=== PATIENT | male | born 1950 | race Caucasian/White ===

== ENCOUNTER 2020-11-12 08:50 | Day surgery (SDC) | payer MEDICARE, SELFPAY ==
[2020-10-20 08:19] VITALS: BMI 25.7
[2020-11-08 09:44] LABS: Hematocrit 38.7 % (40-54); Hemoglobin 12.6 g/dL (13.0-16.5); Mean Corp Hgb Conc 32.6 g/dL (32-36); Mean Corpuscular Volume 95.3 fL (80-94); Mean Platelet Vol. 8.9 fl (6.2-12.0); Platelet Count 218 K/mm3 (150-450); RBC Distribution Width CV 13.4 % (11.6-14.6); RBC Distribution Width SD 47.5 fl (35.1-43.9); Red Blood Count 4.06 M/mm3 (4.6-6.2); White Blood Count 5.8 K/mm3 (4.4-11.0)
[2020-11-08 09:51] LABS: Prothrombin Time (Protime)PT. 12.8 SECONDS (11.7-14.9)
[2020-11-08 09:52] LABS: Partial Thromboplast Time 29.6 Seconds (24.1-36.2)
[2020-11-08 10:49] LABS: Anion Gap 6 (5-15); BUN 14 mg/dL (7-18); BUN/Creat Ratio 12.7 RATIO (10-20); Chloride 107 mmol/L (98-107); EST Glomerular Filtration Rate 70 mL/min (>60); Est Glom Filt Rate - Afr Amer 85 mL/min (>60); Glucose 92 mg/dL (74-106); Potassium 4.4 mmol/L (3.5-5.1); Sodium Level 140 mmol/L (136-145)
[2020-11-12] VITALS (10 sets, daily range): BP systolic 106–118; BP diastolic 58–77; PULSE 57–78; RESP 10–18; TEMP 35.8–36.6; O2SAT 96–100; BMI 24.2
--- NOTE | 2020-11-12 09:36 | PCM.HP.BLA ---
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 Jeremias Jones MD) Heart attack HTN (hypertension) Family History (Updated 10/20/20 @ 08:10 by Teresita Lee) Mother CAD (coronary artery disease) Autoimmune disease Social History (Updated 10/20/20 @ 08:10 by Teresita Lee) Smoking Status: Former smoker alcohol intake: never HPI HPI HPI: MARIAN CABALLERO, is a 70 M who presents to the office today for surgical consultation regarding a right inguinal hernia. The patient is kindly referred by Dr. Marquez and a written copy my surgical consult and recommendation will be returned to him. Patient is a pleasant 70-year-old gentleman. 9 months ago after a game of golf he noted a twinge and discomfort in the right groin. Graduate time it evolved into an avid obvious mass bulge. It is reducible. He was waiting for Covid result. He has had his COVID-19 vaccinations. It is becoming larger and more symptomatic. He does enjoy playing golf at least once per week. His past medical history is notable for having had a myocardial infarction 10 years ago. 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 He has been a long-term cigarette smoker. He claims that for period of time he quit for 15 years. His also smokes and yet apparently she is having some peripheral vascular disease. He feels that this would be a good time for them to cease their use. He is motivated to do so. He otherwise enjoys good health. ROS General General: No weight change, appetite, fatigue, colon cancer, breast cancer or weakness HEENT HEENT: No difficulty swallowing, eye injury, eye surgery, swollen glands or hoarseness Endo Endocrine: No thyroid disease, diabetes mellitus, thyroid cancer, Hair loss, heat intolerance or cold intolerance Skin Skin: No rash or changing moles Breast Breast: No left breast lump, right breast lump, nipple discharge, breast pain, abnormal mammogram, abnormal US or breast enlargement Musc Musculoskeletal: No back problems, arthritis, rheumatoid arthritis, gout or joint pain Cardio Cardiovascular: Yes heart attack; No murmur, pacemaker, heart disease, atrial fibrillation, high blood pressure, heart stent, palpitations, shortness of breat with exertion or chest pain Psych Psychiatric: No depression, anxiety or hearing voices Resp Respiratory: No shortness of breath, No sleep apnea, No cough, No COPD, No asthma, No emphysema and No wheezing Gastro Gastrointestinal: No abdominal pain, No nausea or vomiting, No diarrhea, No constipation, No blood in stool, No acid reflux, No hemorrhoids, No ulcers, No gallbladder problem and No black,tarry stools Francesco Hematologic: No blood thinners, No blood disorders, No bleeding, No anemia and No blood clots Neuro Neurologic: No system reviewed and no additional complaints, except as documented, No as per HPI, No abnormal gait, No abnormal hearing, No abnormal movements, No abnormal speech, No behavioral changes, No burning sensations, No confusion, No convulsions, No disequilibrium, No dizziness, No localized weakness, No frequent falls, No headache(s), No lack of coordination, No loss of vision, No memory loss, No numbness, No other visual disturbances, No radicular pain, No restless legs, No sensory deficit, No syncope, No tingling, No tremor(s), No weakness and No other Exam Const General: cooperative, comfortable and no acute distress Nutritional Appearance: average body habitus Orientation: alert and awake [facility] Head: normal to inspection Eyes General: appearance normal, both eyes and all related structures Resp Effort & Inspection: normal respiratory effort Auscultation: clear to auscultation bilaterally Cardio Rate: regular rate Rhythm: regular rhythm Other: Carotids are 3+. No bruits GI Palpation: soft and no hepatosplenomegaly Auscultation: normal bowel sounds Other: Testicles are descended bilaterally, obvious right inguinal hernia noted probably indirect. It is reducible. No similar defect noted on the left Musc Cervical Spine: normal cervical lordosis Neuro General: patient alert and patient awake Extrem General: no calf tenderness bilaterally Psych Thought Content: normal COVID (Procedure Consent) Procedure Criteria Procedure Criteria: Yes Elective The surgeon/proceduralist and patient have discussed in detail the risk of exposure to and/or potential harm posed by the COVID-19 virus with having a surgery/procedure at this time versus the risk of delaying the surgery/procedure. It is not possible to know either the risk of delaying the surgery or procedure or chance of getting an infection with perfect accuracy, but a joint decision was made between the patient and the surgeon/proceduralist to proceed at this time with the scheduled surgery/procedure as indicated on the consent form. Assessment and Plan Assessment and Plan (1) Hernia: (2) Inguinal hernia of right side without obstruction or gangrene: Status: Acute Plan Details Other Medications: New: tamsulosin (Flomax) 0.4 mg PO Q24H 30 caps 0RF Additional Comments: Pleasant 70-year-old gentleman with a progressively symptomatic and enlarging right inguinal hernia, probably indirect. He has occasional nocturia. He has a history of vascular cardiovascular disease with previous myocardial infarction but that was 10 years ago. He is recently had cardiology evaluation. He is asymptomatic. He does smoke cigarettes but to a lesser degree at 10 cigarettes/week. He is motivated to stop. As noted above he is interested in assisting his with seizing as well. I recommend to him a laparoscopic right inguinal hernia repair with mesh. I discussed the technique, benefit, risk of alternatives. The patient is quite physically active. I believe that this procedure would offer him best opportunity for comfort and return to normal activity. We will ask him to hold his cigarettes approximately 4 weeks preoperatively. We will also initiate him on tamsulosin 0.4 mg nightly 3 weeks preoperatively. He has had an opportunity to ask and have questions answered. We will schedule and proceed at his discretion. I very much appreciate the kind opportunity of assisting with surgical care. Copy: Dr. Mary Jones M.D., F.A.C.S I have re-examined the patient. There are no clinical changes since date of exam.
--- NOTE | 2020-11-12 09:37 | EX.PCM.DISCH ---
Discharge Instructions Procedure General Surgery Diet Discharge Diet: Light diet - advance as tolerated (if you have questions about your diet instructions, please talk to you doctor.) Activity Discharge Activity: May Not Drive (for 3-5 days or while taking narcotic pain medicine.) May shower in (days): 1 Lifting Restrictions: 10 pounds Dressing / Incision Call your doctor if your incision/area has: Continuous Slow Oozing, Sudden Increased Bleeding, Increased Pain/ Swelling, Increased Redness and Foul Smelling Discharge Call your doctor if you observe: Fever of 101 or Higher Suture Line Care: Avoid Pulling/Pushing and Avoid Pinching/Bending Additional Dressing/Incision Instructions:: Change or remove dressing in 4 days. Leave steri-strips in place for 1 week. Follow Up Care Please Follow Up With: Jeremias Jones MD When: Call [phone] to make an appointment to be seen in about 10 days. Test Results: Test results from this visit will be discussed in further detail at your follow-up appointment, if applicable. Discharge Plan Admission Attending Provider: Jeremias Jones Primary Care Provider: Mary Marquez Discharge Orders/Prescriptions Prescriptions: No Action lisinopril 2.5 mg tablet 2.5 mg PO DAILY RF: 0 carvedilol 3.125 mg tablet 3.125 mg PO BID RF: 0 pravastatin 80 mg tablet 80 mg PO QHS RF: 0 aspirin 81 mg Tablet 81 mg PO DAILY RF: 0 tamsulosin [Flomax] 0.4 mg capsule 0.4 mg PO 1700 RF: 0
[2020-11-12] MEDS: Lactated Ringers 1,000 ML 100 ML IV ×3 (09:49→14:39)
[2020-11-12] MEDS: Cefazolin 2 GM in 0.9% Normal Saline 100 ML IV (10:10)
[2020-11-12] MEDS: Bupivacaine Mpf 0.5% 30 ML VIAL (10:32)
--- NOTE | 2020-11-12 11:13 | OP.PCM_ITS ---
Problems Associated Problem List Diagnoses (1) Inguinal hernia of right side without obstruction or gangrene: Report of Operation Date of Procedure: 11/12/20 Pre-Operative Diagnosis: Symptomatic right inguinal hernia Post-Operative Diagnosis: Symptomatic direct right inguinal hernia Surgery/Procedure Performed:: Laparoscopic right inguinal herniorrhaphy with Bard 3D max mesh Large right lot number [id number] Reference #[id number] expiry date 06/17/2025 Description of Surgical Findings:: Timeout and informed consent was obtained. 70-year-old gentleman was taken the operating placed on the table underwent general endotracheal intubation anesthesia. Ancef 2 g were given intravenously. The abdomen sterilely prepped draped. 0.5% Marcaine was used as a local anesthetic skin sites were preanesthetized a vertical infraumbilical incision was created holding sutures of 0 Vicryl placed varies needle inserted saline drop test performed the abdomen was insufflated with CO2 to a pressure of 10 mmHg pressure. 10 mm trocar inserted. 10 mm laparoscope inserted. No evidence of enteric injuries. Under direct visualization 5 mm ports were placed in the right left lower quadrant. A ileal inguinal nerve block on the right was performed under laparoscopic control. There was evidence of a direct right inguinal hernia and no defect on the left. The peritoneum on the right superior lateral to the internal ring was incised carried medially. The direct indirect and femoral area completely dissected free bluntly. Hemostasis was completely intact. A Bard 3D max large mesh was placed so as to cover the defect area. It nicely covered the direct space indirect and femoral area. It was secured in place laterally superiorly and medially with a total of 4 secure strap. Excelle nt positioning was achieved. The peritoneum was approximated to itself using hemolock clips. Complete obliteration to the mesh was achieved. The abdomen was allowed to deflate through an antiviral valve. Trochars were removed. The fascia at the umbilicus approximated with 0 Vicryl [id number] suture. Skin edges approximated opted for Monocryl subdermal stitches. Steri-Strips Telfa OpSite dressings applied. Sponge and instrument and needle counts were reported to certainly be correct. Specimens none. Drains none. Blood loss minimal. Jeremias Jones M.D., F.A.C.S. Surgeon: Jeremias Jones Type of Anesthesia: General Anesthesiologist: Kurt Bhagat
--- NOTE | 2020-11-12 15:56 | SUR.PHASEII ---
Dr. Jones updated. Patient able to void a small amount after PO fluids, IV fluids and walking around the nursing unit. Dr. Jones instructed that patient may continue voiding trials. Patient meets criteria at this time to have a josé catheter inserted. BS [address] Jones recommends josé to gravity until sunday when the office opens. Will continue to monitor and update Dr. Jones until patient is discharged.
== END 2020-11-12 18:34 | disposition home or self-care (01) ==
LOC: SDC 08:51 → AC 08:52
PROVIDERS: Anesthesiology; PCP Family Medicine; Referring Provider Surgery; Visit Provider Surgery
PROC: (CPT 49650; principal; 2020-11-12 10:40)
DX: K40.90 Unilateral inguinal hernia, without obstruction or gangrene, not specified as recurrent (principal); I25.10 Atherosclerotic heart disease of native coronary artery without angina pectoris; K21.9 Gastro-esophageal reflux disease without esophagitis; F17.210 Nicotine dependence, cigarettes, uncomplicated; I25.2 Old myocardial infarction; Z79.82 Long term (current) use of aspirin; Z79.899 Other long term (current) drug therapy
CPT/HCPCS: 00840; 49650; 36415; 80048; 85027; 85610; 85730; J7120; C1781; J2405